=== PATIENT | male | born 1955 | race Caucasian/White ===

== ENCOUNTER 2016-05-28 05:44 | Inpatient (IN) | payer BC ==
[2016-05-24 18:16] LABS: HEMATOCRIT 44.5 % (40.0-51.0); HEMOGLOBIN 15.4 g/dL (13.6-17.8)
[2016-05-24 18:28] LABS: BUN (BLOOD UREA NITROGEN) 20 MG/DL (6-23); CALCIUM, SERUM 8.8 MG/DL (8.5-10.4); CHLORIDE, SERUM 106 MMOL/L (96-112); CO2 (CARBON DIOXIDE) 26 MMOL/L (24-34); CREATININE 0.98 MG/DL (0.70-1.30); GFR AFRICAN AMERICAN 95 ML/MIN (>=60); GFR NON AFRICAN AMERICAN 82 ML/MIN (>=60); GLUCOSE, SERUM 120 MG/DL (60-99); POTASSIUM, SERUM 3.6 MMOL/L (3.5-5.3); SODIUM, SERUM 140 MMOL/L (135-148)
[2016-05-24 18:43] LABS: ASCORBIC ACID (UR NOT ORDER) NEG (NEG); BILIRUBIN, URINE NEGATIVE (NEG); KETONE, URINE NEGATIVE (NEG); LEUKOCYTE ESTERASE(NOT OR NEG (NEG); WBC (NOT ORDERED) (RFLEX) 1 (0-5)
--- NOTE | ~2016-05-28 | OP ---
Record Of Operation [facility] [address] [place]. [address] NAME: XIAO ARELLANO : 53 STATUS : ADM IN PAT#: [id number] AGE: 61 ADM/REG DATE : 05/28/16 MR#: [id number] REPORT SERV DATE: 05/29/16 DICTATED BY: ADA GONZALES DATE: 05/29/16 REPORT STATUS : Draft TRANSCRIBED BY: MODL DATE: 05/29/16 DATE OF PROCEDURE: 05/28/2016 SURGEON: Ada Gonzales M.D. TITLE OF OPERATION: 1. Laparoscopic lysis of adhesions. 2. Intraoperative ultrasound, right kidney. 3. Partial nephrectomy x3 of right kidney. PREOPERATIVE DIAGNOSIS: Renal mass of the right kidney. POSTOPERATIVE DIAGNOSIS: Renal mass of the right kidney. INDICATIONS: Mr. Arellano is a 61-year-old male with a history of a renal mass on the right kidney. He has history of perforated diverticulitis with a diverting colostomy. He is here for surgical removal of his kidney masses. ANESTHESIA: General. COMPLICATIONS: None. IMPLANTS: 1. 16-[place] catheter. 2. #10 round CHEYANNE drain. SPECIMEN: 1. Kidney tumor #1. 2. Kidney tumor #2. 3. Kidney tumor #3. 4. Base of kidney tumor for frozen analysis. ANESTHESIA: General. COMPLICATIONS: None. NARRATIVE: The patient was brought to the operating room, identified by his wristband. General anesthesia was induced and Ancef was given for preoperative antibiotics. He was placed in the modified right flank position. He was secured to the bed with pads and tape. He was prepped and draped in sterile fashion. The abdomen was insufflated to pressure of 15 mmHg using a Veress needle. A 5 mm port was placed in his right upper quadrant with direct vision. His abdomen was inspected, there was marked adhesions from his prior exploratory laparotomy with colostomy. I was able to get an 8 mm port in the right upper quadrant as well, and second 8 mm port in the right lower quadrant. Then using graspers and endoscopic laparoscopic scissors, an extensive laparoscopic lysis of adhesions was performed. This took approximately an hour. Next, I was able to exchange the 5 mm port for an 8 mm port and Record Of Operation [facility] [address] [place]. [address] NAME: XIAO ARELLANO : 53 STATUS : ADM IN PAT#: [id number] AGE: 61 ADM/REG DATE : 05/28/16 MR#: [id number] REPORT SERV DATE: 05/29/16 DICTATED BY: ADA GONZALES DATE: 05/29/16 REPORT STATUS : Draft TRANSCRIBED BY: GLORIA DATE: 05/29/16 the final 8 mm ports placed in the right lower quadrant. A 5 mm port was placed under the xiphoid process for a retracting port. A locking grasper was used to retract the liver cephalad. A 12 mm port was placed in the upper midline for an clinical education assistant port. The robot was then docked. I dropped the colon along the white line of Toldt exposing the retroperitoneum. The duodenum was identified and sharply Kocherized. The inferior vena cava was identified as well. I entered the retroperitoneum above the vena cava and underneath the ureter taking care to drop the gonadal vein onto the IVC. Two renal arteries were identified and all fibrofatty tissue surrounding these structures were taken with electrocautery. Next, the kidney was defatted. A tumor was identified in the medial aspect of the lower pole immediately adjacent to the ureter. Care was taken to lyse the ureter off the tumor and to prevent ureteral injury or edema. During this time, a complex cystic structure was now lateral to the initial tumor. This was initially read as a simple cyst, however, it looked very concerning for malignancy. Finally, a third mass was found on the posterior aspect of the lower pole also concerning for malignancy. At this time, the arterial supply to the kidney was clamped with bulldog clamps. Intraoperative ultrasound was performed prior to this to identified and demarcate the location of the tumor. Images were taken and placed in the chart. The initial tumor along the ureter was enucleated, care taken back into the ureter. This resection was then carried laterally to include the complex cystic structure. The bases of these tumors were then placed into an EndoCatch bag. The base of the defect was oversewn with two 3-0 V-Loc sutures. The capsule was then closed with interrupted 2-0 Vicryl suture using a sliding Weck technique. The kidney was then unclamped. The kidney was allowed to recover. Then attention was turned to the complex cystic structure on the posterior aspect of the kidney. The kidney was then re-clamped and this tumor was enucleated and sent to pathology for analysis. The base of the original tumor was sent for frozen analysis, these came back negative for carcinoma. The base of the tumor was then closed with a 2-0 Vicryl suture using a sliding Weck technique. The bulldog was then removed from the body. There was no ongoing bleeding. The kidney appeared well perfused. The robot was undocked. A #10 CHEYANNE drain was placed at the most inferior robotic port. The ports were then removed. The drain was sutured in place with a 2-0 Prolene suture. The supraumbilical incision was then marked in the skin and fascial level. The three tumors were removed, sent the pathology for analysis. The fascia was closed with a 0 Monocryl suture in a [id number] fashion. Subcutaneous tissues were closed with a 3-0 Vicryl suture. Skin was closed with 4-0 Monocryl suture in subcuticular fashion. Dermabond dressing was placed. A TAP block was placed preoperatively. The patient was awoken from anesthesia and transferred to recovery room in stable condition. There were no complications. PARESH/GLORIA Ada Gonzales MD / [id number] CC: Record Of Operation [address] [address] NAME: XIAO ARELLANO : 53 STATUS : ADM IN [facility]#: [id number] AGE: 61 ADM/REG DATE : 05/28/16 MR#: [id number] REPORT SERV DATE: 05/29/16 DICTATED BY: ADA GONZALES DATE: 05/29/16 REPORT STATUS : Draft TRANSCRIBED BY: GLORIA DATE: 05/29/16 MD Gretta Sandhu M.D.
--- NOTE | ~2016-05-28 | PREOPHP ---
PreOp History and Physical [address] [place]. [address] NAME: XIAO ARELLANO : 53 STATUS : DIS IN PAT#: [id number] AGE: 61 ADM/REG DATE : 05/28/16 MR#: [id number] REPORT SERV DATE: 07/03/16 DICTATED BY: ADA GONZALES DATE: 07/03/16 REPORT STATUS : Draft TRANSCRIBED BY: MODAnish DATE: 07/03/16 CHIEF COMPLAINT: Right renal mass. HISTORY OF PRESENT ILLNESS: Mr. Arellano is a 61-year-old male with history of an enhancing T1a right renal mass. He has history of perforated diverticulitis and currently has a diverting colostomy. He is here for a robot-assisted laparoscopic right partial nephrectomy, potentially open due to his prior surgical history. PAST MEDICAL HISTORY: 1. Right renal mass. 2. Perforated diverticulitis. 3. Hypertension. 4. Hypercholesterolemia. 5. Arthritis. 6. Sleep apnea. PAST SURGICAL HISTORY: Ex-lap for perforated diverticulitis with diverting colostomy. FAMILY HISTORY: No genitourinary cancer. SOCIAL HISTORY: He does not smoke, drink, or use illegal drugs. MEDICATIONS: Reviewed and are on the chart. ALLERGIES: NO KNOWN DRUG ALLERGIES. REVIEW OF SYSTEMS: A 12-point review of systems was performed. Pertinent positives are listed in the HPI. PHYSICAL EXAMINATION: VITAL SIGNS: He is afebrile with vital signs stable. GENERAL: No acute distress. HEENT: Head is normocephalic and atraumatic. LUNGS: Breathing nonlabored. He is not in respiratory distress. CARDIAC: Pulse is regular in rate and rhythm. ABDOMEN: Soft, nontender, nondistended. He does have a diverting colostomy. NEUROLOGIC: He is alert and oriented x3. EXTREMITIES: There is no cyanosis or edema. LABORATORY DATA: No new labs. IMAGING: No new imaging. ASSESSMENT AND PLAN: T1a right enhancing renal mass. The patient has been counseled regarding his options including surveillance, ablation, and partial nephrectomy. He is here for robot-assisted laparoscopic right partial nephrectomy. He understands there is a high risk of opening given his prior surgical history. We will proceed with surgery as planned. PreOp History and Physical [address] [address] NAME: XIAO ARELLANO : 53 STATUS : DIS IN PAT#: [id number] AGE: 61 ADM/REG DATE : 05/28/16 MR#: [id number] REPORT SERV DATE: 07/03/16 DICTATED BY: ADA GONZALES DATE: 07/03/16 REPORT STATUS : Draft TRANSCRIBED BY: MODL DATE: 07/03/16 PARESH/EDUL Ada Gonzales MD / [id number] CC: MD Gretta Sandhu M.D.
[~2016-05-28 05:44] MED LIST: HYGROTON 25 MG25 MG PO; MOBIC15 MG PO; PRIN10 PO; PROSCAR5 PO; ZOCOR20 PO
[2016-05-28 14:13] LABS: BASOPHILS 0.1 %; BASOPHILS ABSOLUTE 0.02 10/3/uL (0.0-0.16); EOSINOPHILS 0.1 %; EOSINOPHILS ABSOLUTE 0.01 10/3/uL (0.0-0.53); HEMATOCRIT 42.4 % (40.0-51.0); HEMOGLOBIN 14.8 g/dL (13.6-17.8); IMMATURE GRANULOCYTES 0.5 %; IMMATURE GRANULOCYTES ABSOLUTE 0.07 10/3/uL (0.0-0.11); LYMPHOCYTES 8.8 %; MEAN CORPUS HGB CONC 34.9 g/dL (32.0-36.0); MEAN CORPUSCULAR HEMOGLOB 29.9 pg (26.0-34.0); MEAN CORPUSCULAR VOLUME 85.7 fL (80-100); MEAN PLATELET VOLUME 9.3 fL (9.2-13.0); MONOCYTES 2.3 %; MONOCYTES ABSOLUTE 0.32 10/3/uL (0.21-1.20); NEUTROPHILS 88.2 %; NEUTROPHILS ABSOLUTE 12.09 10/3/uL (2.02-8.40); PLATELET COUNT 215 10/3/uL (150-400); RBC DISTRIBUTION WIDTH 13.4 % (12.0-16.0); RED CELL COUNT 4.95 10/6/uL (4.7-6.1); WHITE BLOOD CELLS 13.7 10/3/uL (4.5-10.5)
[2016-05-28 14:16] LABS: MANUAL DIFF NO %
[2016-05-28 14:25] LABS: BUN (BLOOD UREA NITROGEN) 18 MG/DL (6-23); CALCIUM, SERUM 8.3 MG/DL (8.5-10.4); CHLORIDE, SERUM 104 MMOL/L (96-112); CO2 (CARBON DIOXIDE) 22 MMOL/L (24-34); CREATININE 1.27 MG/DL (0.70-1.30); GFR AFRICAN AMERICAN 70 ML/MIN (>=60); GFR NON AFRICAN AMERICAN 60 ML/MIN (>=60); POTASSIUM, SERUM 3.8 MMOL/L (3.5-5.3); SODIUM, SERUM 142 MMOL/L (135-148)
[2016-05-28 14:26] LABS: GLUCOSE, SERUM 180 MG/DL (60-99)
[2016-05-29 06:56] LABS: BASOPHILS 0.1 %; BASOPHILS ABSOLUTE 0.01 10/3/uL (0.0-0.16); EOSINOPHILS 0 %; HEMATOCRIT 41.5 % (40.0-51.0); HEMOGLOBIN 14.4 g/dL (13.6-17.8); IMMATURE GRANULOCYTES 0.4 %; IMMATURE GRANULOCYTES ABSOLUTE 0.05 10/3/uL (0.0-0.11); LYMPHOCYTES 11.7 %; LYMPHOCYTES ABSOLUTE 1.62 10/3/uL (0.67-4.30); MEAN CORPUS HGB CONC 34.7 g/dL (32.0-36.0); MEAN CORPUSCULAR HEMOGLOB 29.8 pg (26.0-34.0); MEAN CORPUSCULAR VOLUME 85.7 fL (80-100); MEAN PLATELET VOLUME 9.8 fL (9.2-13.0); MONOCYTES 11.3 %; MONOCYTES ABSOLUTE 1.57 10/3/uL (0.21-1.20); NEUTROPHILS 76.5 %; NEUTROPHILS ABSOLUTE 10.65 10/3/uL (2.02-8.40); PLATELET COUNT 188 10/3/uL (150-400); RBC DISTRIBUTION WIDTH 13.2 % (12.0-16.0); RED CELL COUNT 4.84 10/6/uL (4.7-6.1); WHITE BLOOD CELLS 13.9 10/3/uL (4.5-10.5)
[2016-05-29 07:15] LABS: MANUAL DIFF NO %
[2016-05-29 09:11] LABS: BUN (BLOOD UREA NITROGEN) 22 MG/DL (6-23); CALCIUM, SERUM 8.2 MG/DL (8.5-10.4); CHLORIDE, SERUM 104 MMOL/L (96-112); CO2 (CARBON DIOXIDE) 23 MMOL/L (24-34); CREATININE 1.48 MG/DL (0.70-1.30); GFR AFRICAN AMERICAN 58 ML/MIN (>=60); GFR NON AFRICAN AMERICAN 50 ML/MIN (>=60); GLUCOSE, SERUM 146 MG/DL (60-99); POTASSIUM, SERUM 4.5 MMOL/L (3.5-5.3); SODIUM, SERUM 140 MMOL/L (135-148)
[2016-05-30 05:20] LABS: BASOPHILS 0.2 %; BASOPHILS ABSOLUTE 0.02 10/3/uL (0.0-0.16); EOSINOPHILS 0.1 %; EOSINOPHILS ABSOLUTE 0.01 10/3/uL (0.0-0.53); HEMATOCRIT 39.2 % (40.0-51.0); HEMOGLOBIN 13.6 g/dL (13.6-17.8); IMMATURE GRANULOCYTES 0.4 %; IMMATURE GRANULOCYTES ABSOLUTE 0.05 10/3/uL (0.0-0.11); LYMPHOCYTES 9.7 %; LYMPHOCYTES ABSOLUTE 1.22 10/3/uL (0.67-4.30); MEAN CORPUS HGB CONC 34.7 g/dL (32.0-36.0); MEAN CORPUSCULAR HEMOGLOB 29.8 pg (26.0-34.0); MEAN PLATELET VOLUME 9.4 fL (9.2-13.0); MONOCYTES 9.7 %; MONOCYTES ABSOLUTE 1.23 10/3/uL (0.21-1.20); NEUTROPHILS 79.9 %; PLATELET COUNT 151 10/3/uL (150-400); RBC DISTRIBUTION WIDTH 13.6 % (12.0-16.0); RED CELL COUNT 4.56 10/6/uL (4.7-6.1); WHITE BLOOD CELLS 12.6 10/3/uL (4.5-10.5)
[2016-05-30 05:43] LABS: CHLORIDE, SERUM 103 MMOL/L (96-112); CO2 (CARBON DIOXIDE) 24 MMOL/L (24-34); GFR AFRICAN AMERICAN 75 ML/MIN (>=60); GFR NON AFRICAN AMERICAN 64 ML/MIN (>=60); GLUCOSE, SERUM 118 MG/DL (60-99); POTASSIUM, SERUM 4.3 MMOL/L (3.5-5.3); SODIUM, SERUM 139 MMOL/L (135-148)
[2016-05-30 05:45] LABS: BUN (BLOOD UREA NITROGEN) 18 MG/DL (6-23)
[2016-05-30 06:08] LABS: PLATELET ESTIMATE ADQ (ADEQUATE); RBC MORPHOLOGY NORM (NORMAL)
[2016-05-30 06:50] LABS: MANUAL DIFF NO %
[2016-05-30] MEDS ORDERED: PCET PO (09:10)
== END 2016-05-30 10:59 | disposition home or self-care (01) | DRG 658 ==
LOC: SDC/OF 05:44 → PACU 12:49 → 4SO 14:47
PROVIDERS: Urology
DX: D41.01 Neoplasm of uncertain behavior of right kidney (principal); E66.9 Obesity, unspecified; I10 Essential (primary) hypertension; G47.33 Obstructive sleep apnea (adult) (pediatric); Z90.49 Acquired absence of other specified parts of digestive tract; Z68.33 Body mass index [BMI] 33.0-33.9, adult
CPT/HCPCS: 36415; 74000; 80048; 81001; 82570; 85014; 85018; 85025; 86850; 86900; 86901; 88305; 88307; 88331; 93005; A9270-GY; J0330; J0690; J1170; J1885; J2250; J2370; J2405; J2710; J2795; J3010